=== PATIENT | female | born 1950 | race Two or more races ===

== ENCOUNTER 2017-12-07 09:33 | Outpatient (CLI) | payer OTHER | END 2017-12-07 09:37 | disposition home or self-care (01) | LOC: SONOGRAMA 09:33 → MAMO-SONO 11:15 | DX: R10.10 Upper abdominal pain, unspecified (principal) ==

== ENCOUNTER 2018-01-23 13:56 | Outpatient (CLI) | payer OTHER | END 2018-01-23 14:30 | disposition home or self-care (01) | LOC: NUCLEAR 13:56 | DX: M81.0 Age-related osteoporosis without current pathological fracture (principal) ==

== ENCOUNTER 2021-03-30 07:23 | Outpatient (CLI) | payer OTHER | END 2021-03-30 07:31 | disposition home or self-care (01) | LOC: NUCLEAR 07:23 | PROVIDERS: ATTEND Obstetrics & Gynecology Gynecology | DX: R10.11 Right upper quadrant pain (principal) | CPT/HCPCS: 78226; A9537; J2805 ==